=== PATIENT | male | born 2000 | race Asian ===

== ENCOUNTER 2024-11-15 21:52 | Emergency (ER) | payer MEDICAID ==
[~2024-11-15] VITALS: Ht 170.2 cm; Wt 77.1 kg
== END 2024-11-15 22:38 | disposition home or self-care (01) ==
LOC: ER 21:52
DX: M25.511 Pain in right shoulder (principal); Z91.040 Latex allergy status; Z88.1 Allergy status to other antibiotic agents
CPT/HCPCS: 73030; 99283-25